=== PATIENT | female | born 1980 | race Caucasian/White ===

== ENCOUNTER 2018-01-08 08:50 | Day surgery (SDC) | payer BC ==
[~2018-01-08] VITALS: Ht 177.8 cm; Wt 74.1 kg
[2018-01-08 09:21] VITALS: BP 152/94; PULSE 80; RESP 20; TEMP 97.8; O2SAT 98
[2018-01-08] MEDS ORDERED: OMEP40CA2 (09:27)
[2018-01-08] MEDS ORDERED: Progesterone PO (09:27)
[2018-01-08] MEDS ORDERED: METF1000 PO (09:27)
[2018-01-08] MEDS ORDERED: MELO7.5T27 PO (09:27)
[2018-01-08] MEDS ORDERED: LEVOTAB PO (09:27)
[2018-01-08] MEDS ORDERED: SODIUM CHLOR 0.9% 1000 ML INJ 1,000 ML IV SCH (09:30)
[2018-01-08 10:40] VITALS: BP 125/66; PULSE 81; RESP 20; TEMP 97.9; O2SAT 97
--- NOTE | 2018-01-08 11:56 | RADRPT ---
EXAM DATE/TIME: 01/08/2018 10:34 [place] COMPARISON: No previous studies available for comparison. INDICATIONS : Patient presents with blurred vision in need of lumbar puncture to rule out multiple sclerosis. MEDICAL HISTORY : GERD PCOS Acid reflux SURGICAL HISTORY : Right hand sx Sinus sx Back sx Right knee sx TIA Eye sx ENCOUNTER: Initial ACUITY: 3 weeks PAIN SCORE: 0/10 LOCATION: N/A LUMBAR PUNCTURE TIME: 10:26 hours FLUORO TIME: 0.3 minutes IMAGE SERIES: 0 ACCESS LEVEL: L2-3 FLUID: 9 cc of clear CSF was collected and sent to the laboratory for analysis. PROCEDURE : 1. Fluoroscopic guided lumbar puncture. The risks, benefits and alternatives to the procedure were explained and verbal and written consent w as obtained. The site was prepped in sterile fashion. Full sterile technique was used, including ca p, mask, sterile gloves and gown and a large sterile sheet. Hand hygiene and 2% chlorhexidine and/or betadine/alcohol prep was utilized per protocol for cutaneous antisepsis. The skin and subcutaneous tissues were infiltrated with local anesthetic solution. With fluoroscopic guidance the lumbar thecal sac was punctured at the level above. The fluid describ ed above was removed without difficulty. The patient tolerated the procedure well and there were no complications. CONCLUSION: Uncomplicated fluoroscopically guided lumbar puncture. John Michaels MD on January 08, 2018 at 11:53 Board Certified Radiologist. This report was verified electronically.
[2018-01-08 12:27] LABS: RBC TUBE #1 0 /MM3; SUPERNATE COLOR TUBE #1 CLEAR (CLEAR); VOLUME TUBE # 1 1.8 ML; WBC TUBE #1 8 /MM3 (0-10)
[2018-01-08 12:28] LABS: CSF LYMPHOCYTES 100 %; CSF NEUTROPHILS 0 %
[2018-01-08 12:30] LABS: RBC TUBE #4 0 /MM3; WBC TUBE #4 5 /MM3 (0-10)
[2018-01-08 12:31] LABS: CSF LYMPHOCYTES 94 %; CSF MONOCYTES 6 %; CSF NEUTROPHILS 0 %
[2018-01-09 10:52] LABS: HSV 1,PCR Negative (Negative)
[2018-01-11 10:44] LABS: CSF CRYPTOCOCCUS AG CONF ND (NOT DETECTD)
[2018-01-11] MEDS ORDERED: PROG200C PO (10:55)
[2018-01-12 19:53] LABS: CSF CRYPTOCOCCUS ANTIGEN NOT DETECTED (()); VDRL CSF NON-REACTIVE (())
== END 2018-01-08 12:40 | disposition home or self-care (01) ==
LOC: HROP 08:50 → HRIP 09:06 → HROP 12:40
PROVIDERS: ATTEND Specialist
DX: H53.8 Other visual disturbances (principal); Z03.89 Encounter for observation for other suspected diseases and conditions ruled out
CPT/HCPCS: 62270; 77003; 82040; 82042; 82784; 82945; 83873; 83916; 84157; 86403; 86592; 86618; 87015; 87070; 87102; 87116; 87205; 87206; 87529; 88108; 89051

== ENCOUNTER → 2018-01-15 | Day surgery (SDC) | payer BC ==
[~2018-01-15] MED LIST: CHLORHEXIDINE GLUCONATE 2 % 1 PACK (2 CLOTHS) TOPICAL PRN; GLYCOPYRROLATE 0.2 MG/ML VIAL ONE; LACTATED RINGER'S 1000 ML IV PRN; LEVOTAB PO; MELO7.5T27 PO; METF1000 PO; METOPROLOL TARTRATE 25 MG TAB PO PRN; OMEP40CA2; POVIDONE IODINE 5% (ANTISEPSIS KIT) 4 APPLICATIONS EACH NARE PRN; PROG200C PO; RESP: LIDOCAINE HCL 4% PF 5 ML NEB ONE; SODIUM CHLORID 0.9% 500 ML IV PRN
[2018-01-15 16:40] VITALS: BP 109/60; PULSE 90; RESP 16; TEMP 98.9; O2SAT 97
== END | disposition home or self-care (01) ==
LOC: HSDC 11:19
PROVIDERS: ATTEND Anesthesiology
DX: G97.1 Other reaction to spinal and lumbar puncture (principal)
CPT/HCPCS: 62273